=== PATIENT | female | born 1985 | race African-American/Black ===

== ENCOUNTER 2018-02-26 01:42 | Emergency (ER) | payer MEDICAID, BC ==
[~2018-02-26] VITALS: Ht 162.6 cm; Wt 83.9 kg
[2018-02-26] MEDS ORDERED: HYDROCODONE/APAP 5/325MG 1 EACH TABLET PO ONE (02:00)
[2018-02-26] MEDS ORDERED: TDAP [DIPH/PERTUSSIS/TET] 0.5 ML VIAL IM ONE ×2 (02:00→02:17)
--- NOTE | 2018-02-26 02:08 | NUR ---
PATIENT OFF TO CT SCAN IN STABLE CONDITION
[2018-02-26] MEDS ORDERED: HYDROCODONE/APAP 5/325MG 1 EACH TABLET ONE (02:17)
--- NOTE | 2018-02-26 02:32 | NUR ---
DOMINIC VIEYRA ARRIVED TO SPEAK TO PT RE: PT'S BOYFRIEND
--- NOTE | 2018-02-26 02:36 | NUR ---
AZALIA LEFT THE BEDSIDE.
--- NOTE | 2018-02-26 02:49 | NUR ---
PT AMBULATED TO THE BATHROOM WITH A STEADY GAIT.
--- NOTE | 2018-02-26 03:37 | NUR ---
Patient discharged to home in stable condition. Written and verbal after care instructions given. Patient verbalizes understanding of instruction AND RX. PT AMBULATED OUT WITH A STEADY GAIT. PT'S FRIEND IS DRIVING PT HOME. VSS. NAD NOTED.
[2018-02-26 04:14] VITALS: BP 115/76
== END 2018-02-26 03:37 | disposition home or self-care (01) ==
LOC: ER 01:44
DX: S00.83XA Contusion of other part of head, initial encounter (principal); S60.221A Contusion of right hand, initial encounter; V48.6XXA Car passenger injured in noncollision transport accident in traffic accident, initial encounter; Y93.89 Activity, other specified; Y92.828 Other wilderness area as the place of occurrence of the external cause; Y99.8 Other external cause status
CPT/HCPCS: 70450; 90471; 90715; 99284; A4606; Z7610